=== PATIENT | female | born 1990 ===

== ENCOUNTER 2017-04-08 19:33 | Emergency (ER) | payer OTHER ==
[~2017-04-08] VITALS: Ht 157.4 cm; Wt 78.5 kg
[~2017-04-08 19:33] MED LIST: AMOXICILLIN500 MG PO; ULTRAM50 MG PO; VICO10300 PO
== END 2017-04-08 19:57 | disposition home or self-care (01) ==
LOC: ED 19:33
DX: Z00.00 Encounter for general adult medical examination without abnormal findings (principal); F17.200 Nicotine dependence, unspecified, uncomplicated; Z90.49 Acquired absence of other specified parts of digestive tract